=== PATIENT | male | born 1975 | race Caucasian/White ===

== ENCOUNTER → 2016-09-08 | Outpatient (CLI) | payer BC ==
[2016-09-08 10:03] LABS: PROLACTIN 6.68 ng/mL
== END | disposition home or self-care (01) ==
LOC: C.LAB 07:55
PROVIDERS: ATTEND Urology
DX: N46.9 Male infertility, unspecified (principal); N40.1 Benign prostatic hyperplasia with lower urinary tract symptoms

== ENCOUNTER → 2016-12-16 | Outpatient (CLI) | payer BC ==
[2016-12-22 09:32] LABS: HEPATITIS BE ANTIGEN TC 555 Nonreactive; TESTOSTERONE,TOTAL 515 ng/dL (250-1100)
== END | disposition home or self-care (01) ==
LOC: C.LAB 08:01
PROVIDERS: ATTEND Specialist
DX: Z31.440 Encounter of male for testing for genetic disease carrier status for procreative management (principal); Z11.3 Encounter for screening for infections with a predominantly sexual mode of transmission; Z11.4 Encounter for screening for human immunodeficiency virus [HIV]; N46.11 Organic oligospermia; E07.9 Disorder of thyroid, unspecified